=== PATIENT | male | born 1990 | race Caucasian/White ===

== ENCOUNTER 2019-05-02 11:44 | Emergency (ER) | payer OTHER ==
[~2019-05-02] VITALS: Ht 188 cm; Wt 83.9 kg
[~2019-05-02 11:44] MED LIST: Acetaminophen-1 EAC1 PO; Vibramycin100 MG PO
== END 2019-05-02 13:34 | disposition home or self-care (01) ==
LOC: ER 11:44
DX: S61.210A Laceration without foreign body of right index finger without damage to nail, initial encounter (principal); F17.210 Nicotine dependence, cigarettes, uncomplicated; Z88.0 Allergy status to penicillin; Z88.2 Allergy status to sulfonamides; W26.0XXA Contact with knife, initial encounter
CPT/HCPCS: 12002; 99282-25

== ENCOUNTER 2019-05-12 23:56 | Emergency (ER) | payer OTHER ==
[2019-05-13] MEDS ORDERED: Cleocin HCl300 MG PO (04:52)
== END 2019-05-13 00:45 | disposition left against medical advice (07) ==
LOC: ER 23:56
DX: Z53.21 Procedure and treatment not carried out due to patient leaving prior to being seen by health care provider (principal)

== ENCOUNTER 2019-05-13 03:01 | Emergency (ER) | payer OTHER ==
[~2019-05-13] VITALS: Ht 188 cm; Wt 81.7 kg
[2019-05-13] MEDS ORDERED: Cleocin HCl300 MG PO (04:52)
== END 2019-05-13 04:56 | disposition home or self-care (01) ==
LOC: ER 03:01
DX: K02.9 Dental caries, unspecified (principal); L70.0 Acne vulgaris; F17.210 Nicotine dependence, cigarettes, uncomplicated; Z88.2 Allergy status to sulfonamides; Z88.1 Allergy status to other antibiotic agents
CPT/HCPCS: 99283